=== PATIENT | male | born 1970 | race Caucasian/White ===

== ENCOUNTER 2024-05-16 01:28 | Day surgery (SDC) | payer BC, SELFPAY ==
[2024-04-28 14:34] VITALS: BMI 25.0
[2024-05-16 12:28] VITALS: BP 133/78; PULSE 71; RESP 20; TEMP 36.1; O2SAT 100; BMI 24.3
[2024-05-16] MEDS: LACTATED RINGERS 1,000 ML 150 ML IV CONT (12:45)
--- NOTE | 2024-05-16 13:08 | P.PNAN_ITS ---
Anes - Initial Pre Proc Eval Procedure: Operation Date: 05/16/24 13:45 Proposed Procedures p Screening Colonoscopy - Jp Bailey MD Date/Time: 05/16/24 13:08 Surgeon: Jp Bailey MD Pre Op Diagnosis: Screening for malignant neoplasm of colon Patient Data Age: 54 Gender: M Height: 1.91 m Weight: 88.1 kg Last Vital Signs Temp 96.9 F L 05/16/24 12:28 Pulse 71 05/16/24 12:28 Resp 20 05/16/24 12:28 BP 133/78 05/16/24 12:28 Pulse Ox 100 05/16/24 12:28 O2 Del Method Room Air 05/16/24 12:28 Allergies Allergy/AdvReac Type Severity Reaction Status Date / Time No Known Allergies Allergy Verified 05/16/24 12:35 Home Medications ?Medication ?Instructions ?Recorded ?Confirmed ?Type No Home Medications 02/26/23 04/28/24 History Patient hx anesthesia problems: none Family hx anesthesia problems: none Results Review: All pre-operative results and documents have been reviewed as part of the pre-op erative evaluation. [facility], [facility] Past Medical History Medical History Seasonal allergic rhinitis due to pollen Deviated nasal septum Surgical History Surgical History History of vasectomy Family History Family History Father Malignant neoplasm of prostate Sibling Family history of diabetes mellitus in first degree relative Social History Social History Social History: Smoking status: Never smoker Second hand tobacco smoke exposure: No Alcohol intake: current Drinks per week: 2 Alcohol use details: Socially Substance use: never Substance use type: does not use Do You Feel Safe in your Home?: Yes Lack of Transportation: No Lack of Food: Never True Current Housing: I Have Housing Concerned About Future Housing: No Difficulty Paying Gas/Electric Bills: No Difficulty Paying for Meds: No Currently Unemployed: No Education: Master's Degree or Higher Difficulty w/ Childcare or Family Care: No Living arrangements: with family Occupation/Education: occupation 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 [employer] Gender identity (if verbalized by the patient): Male Sexual Orientation (if Verbalized by the Patient): Straight or Heterosexual Spiritual care concerns: No Anes - Eval Final PreProcedure Day of Procedure 05/16/24 13:08 Patient weight: normal Lungs: normal air movement Airway: Mallampati scale class II Neurological: alert and oriented Last oral intake: >/= 8 hours ASA classification: I Emergent: no Anesthetic plan: proceed Anesthesia type and monitoring: general GIVS and standard monitoring Results Review: All pre-operative results and documents have been reviewed as part of the pre-operative evaluation. Active w wt lifting, no cp or sob. Informed Consent: The patient's anesthetic plan and its attendant risks and benefits were discusse d with the patient/family/POA. Questions were solicited and answers provided to the satisfaction of the patient/family/POA.
--- NOTE | 2024-05-16 13:45 | PM.IMHP ---
H&P: HPI History of Present Illness Date/Time: 05/16/24 13:45 Chief Complaint: Screening colonoscopy Narrative: This is the patient's first colonoscopy. There are no GI symptoms and there is no family history of colorectal cancer. Review of Systems Review of Systems: All systems reviewed & are unremarkable except as noted in HPI and below [facility] Past Medical History Medical History Seasonal allergic rhinitis due to pollen Deviated nasal septum Surgical History Surgical History History of vasectomy Family History Family History Father Malignant neoplasm of prostate Sibling Family history of diabetes mellitus in first degree relative Social History Social History Social History: Smoking status: Never smoker Second hand tobacco smoke exposure: No Alcohol intake: current Drinks per week: 2 Alcohol use details: Socially Substance use: never Substance use type: does not use Do You Feel Safe in your Home?: Yes Lack of Transportation: No Lack of Food: Never True Current Housing: I Have Housing Concerned About Future Housing: No Difficulty Paying Gas/Electric Bills: No Difficulty Paying for Meds: No Currently Unemployed: No Education: Master's Degree or Higher Difficulty w/ Childcare or Family Care: No Living arrangements: with family Occupation/Education: occupation 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 [employer] Gender identity (if verbalized by the patient): Male Sexual Orientation (if Verbalized by the Patient): Straight or Heterosexual Spiritual care concerns: No Meds Home Medications and Allergies Home Medications ?Medication ?Instructions ?Recorded ?Confirmed ?Type No Home Medications 02/26/23 04/28/24 History Allergies Allergy/AdvReac Type Severity Reaction Status Date / Time No Known Allergies Allergy Verified 05/16/24 12:35 Vital Signs Vital Signs - 24 hr 05/16/24 12:28 Temperature 96.9 F L Pulse Rate 71 Respiratory Rate 20 Blood Pressure 133/78 Pulse Oximetry 100 Oxygen Delivery Room Air Exam Const: General: cooperative and healthy appearing Resp: Effort & Inspection: normal respiratory effort and able to speak in complete sentences Auscultation: clear to auscultation bilaterally Cardio: Rate: regular rate Rhythm: regular rhythm GI: Inspection: normal to inspection GI Palp: No No hepatosplenomegaly present Auscultation: normal bowel sounds Rectal Exam: deferred Skin: General skin exam: normal color Psych: Appearance: grossly normal Mental Status: mental status grossly normal Assessment and Plan Assessment and plan (1) Encounter for screening colonoscopy: Code(s): Z12.11 - Encounter for screening for malignant neoplasm of colon Status: Acute Assessment and Plan: The patient is deemed a good candidate for the procedure. Consent signed. Will proceed.
[2024-05-16 14:16] VITALS: BP 113/54; PULSE 72; RESP 18; O2SAT 99
[2024-05-16 14:26] VITALS: BP 110/68; PULSE 69; RESP 18; O2SAT 100
[2024-05-16 14:36] VITALS: BP 114/73; PULSE 60; RESP 18; O2SAT 100
== END 2024-05-16 14:41 | disposition home or self-care (01) ==
PROVIDERS: PCP Family Medicine; Referring Provider Physician Assistant; Visit Provider Internal Medicine Gastroenterology
PROC: 0DJD8ZZ Inspection of Lower Intestinal Tract, Via Natural or Artificial Opening Endoscopic (ICD-10-PCS; CPT 45378; principal; 2024-05-16 13:45)
DX: Z12.11 Encounter for screening for malignant neoplasm of colon (principal)
CPT/HCPCS: 45378; J2003; J2704; J7120